=== PATIENT | male | born 1960 | race Caucasian/White ===

== ENCOUNTER 2017-07-23 16:00 | Emergency (ER) | payer SELFPAY, OTHER ==
[2017-07-23] MEDS: LIDOCAINE 1% (MDV) 20 ML INJ SC (17:10)
[2017-07-23] MEDS: ACETAMINOPHEN 325 MG TAB PO (17:10)
[2017-07-23] MEDS: DIPHTH/TET/ACEL PERTUSS (ADULT) 0.5 ML VIAL IM* (18:06)
== END 2017-07-23 18:21 | disposition home or self-care (01) ==
LOC: FTE 16:00
DX: S61.012A Laceration without foreign body of left thumb without damage to nail, initial encounter (principal); W26.0XXA Contact with knife, initial encounter; Y92.9 Unspecified place or not applicable; Z23 Encounter for immunization
CPT/HCPCS: 12001; 90471; 90715; 99283-25